=== PATIENT | female | born 1990 | race Caucasian/White ===

== ENCOUNTER 2020-09-04 07:59 | Observation (INO) | payer OTHER ==
[2020-09-04] VITALS (9 sets, daily range): BP systolic 94–105; BP diastolic 52–66; PULSE 70–83; TEMP 97.4–99
[~2020-09-04] VITALS: Ht 157.5 cm; Wt 73.6 kg
[2020-09-04] MEDS ORDERED: FOLIC ACID0.4 MG PO (08:22)
[2020-09-04 08:26] LABS: BASO % 0.4 % (0.0-2.0); EOS # 0.1 (0.0-0.7); GRAN # 4.6 (1.4-6.5); GRAN % 55.6 % (42.2-75.2); HEMATOCRIT 37.2 % (37.0-47.0); HEMOGLOBIN 12.1 g/dl (12.5-16.0); LYMPH # 2.9 (1.2-3.4); LYMPH % 35.3 % (20.0-51.0); MEAN CELL VOLUME 86 fl (80.0-100.0); MEAN CORPUSCULAR HEMOGLOBIN 28 pg (27.0-31.0); MEAN CORPUSCULAR HGB CONC 33 g/dl (33.0-37.0); MEAN PLATELET VOLUME 11.6 fl (7.4-10.4); MONO # 0.6 (0.1-0.6); MONO % 7.3 % (1.7-9.3); PLATELET COUNT 266 K/mm3 (130-400); RED BLOOD COUNT 4.33 M/mm3 (4.10-5.30)
[2020-09-04 08:34] LABS: PROTHROMBIN TIME 11.5 SECONDS (9.7-12.8)
[2020-09-04 08:38] LABS: ALANINE AMINOTRANSFERASE 11 U/L (4-34); ALBUMIN 4.5 gm/dL (3.5-5.0); ALKALINE PHOSPHATASE 49 U/L (50-136); ANION GAP 11 mmol/L (7-16); AST,SGOT 21 U/L (15-37); BILIRUBIN,TOTAL < 0.1 mg/dL (0.0-1.0); BLOOD UREA NITROGEN 8 mg/dL (7-17); CALCIUM 9.6 mg/dL (8.4-10.2); CARBON DIOXIDE 25 mmol/L (22-30); CHLORIDE 101 mmol/L (98-107); CREATININE, serum 0.41 (0.52-1.25); GLUCOSE 96 mg/dL (74-106); LIPASE 64 U/L (23-300); POTASSIUM 3.5 mmol/L (3.4-5.0); SODIUM 138 mmol/L (137-145)
[2020-09-04 08:42] LABS: COLLECTION METHOD CLEAN CATCH
[2020-09-04 09:03] LABS: MUCOUS Present /lpf; PH 6 (5-8); SQUAMOUS EPITHELIAL 0-2 /hpf; URINE APPEARANCE Clear; URINE BACTERIA None Seen /hpf; URINE BILIRUBIN Negative (NEGATIVE); URINE BLOOD Negative (NEGATIVE); URINE COLOR Yellow; URINE GLUCOSE Negative (NEGATIVE); URINE KETONE Negative (NEGATIVE); URINE LEUKOCYTE ESTERASE Negative (NEGATIVE); URINE NITRATE Negative (NEGATIVE); URINE PROTEIN(semi-quant) Negative (NEGATIVE); URINE RBC 0-2 /hpf; URINE UROBILINOGEN Negative (NEGATIVE)
--- NOTE | 2020-09-04 14:43 | NUR ---
To room 222 via bed. Report received. Assessment completed. VS obtained. to bedside. Plan of care reviewed with patient and spouse who verbalize understanding. Call light within reach.
[2020-09-05] VITALS: BP 102/58; PULSE 68
[2020-09-05 04:30] VITALS: BP 99/48; PULSE 65; TEMP 97.6
[2020-09-05 07:30] VITALS: BP 117/60; PULSE 69; TEMP 97.8
[2020-09-05] MEDS ORDERED: PERCOCET 325 MG1 TA2 PO (11:11)
[2020-09-05 11:20] VITALS: BP 100/60; PULSE 68; TEMP 97.8
--- NOTE | 2020-09-05 11:39 | NUR ---
Patient and given discharge instructions. Will call Dr. Gibson's office for follow up. Reviweed medications. Patient denies questions. Leaves ambulatory.
== END 2020-09-05 11:40 | disposition home or self-care (01) ==
LOC: COL.ER 07:59 → OB 11:37
PROVIDERS: Emergency Medicine; ADMIT Surgery
DX: O99.612 Diseases of the digestive system complicating pregnancy, second trimester (principal); K80.12 Calculus of gallbladder with acute and chronic cholecystitis without obstruction; Z3A.19 19 weeks gestation of pregnancy
CPT/HCPCS: G0378; J0330; J0690; J1100; J1170; J2405; J2704; J3010; J7040; J7120

== ENCOUNTER → 2020-12-08 | Outpatient (CLI) | payer OTHER ==
[~2020-12-08] MED LIST: FOLIC ACID0.4 MG PO; PERCOCET 325 MG1 TA2 PO
== END ==
LOC: DIA.ED 07:58
DX: O24.419 Gestational diabetes mellitus in pregnancy, unspecified control (principal)
CPT/HCPCS: G0108

== ENCOUNTER → 2021-02-10 | Outpatient (CLI) | payer SELFPAY | LOC: ZCOL.LAB 10:45 | DX: Z20.822 Contact with and (suspected) exposure to COVID-19 (principal) ==

== ENCOUNTER 2021-02-11 10:42 | Inpatient (IN) | payer OTHER ==
[~2021-02-11] VITALS: Ht 157.5 cm; Wt 88.5 kg
[2021-02-11] VITALS (48 sets, daily range): BP systolic 93–153; BP diastolic 51–98; PULSE 58–686; TEMP 97.9–98.5
--- NOTE | 2021-02-11 10:55 | NUR ---
PT ARRIVES AMBULATORY TO UNIT FROM CLINIC FOR INDUCTION OF LABOR PER FOLLOWING ULTRASOUND THIS AM RESULTING IN OLIGOHYDRAMNIOS. PT DENIES CONTRACTIONS, LEAKING OF FLUID, AND REPORTS POSITIVE MOVEMENT. ADMISSION ASSESSMENT COMPLETED. CONSENTS SIGNED. PT UPDATED ON POC. WILL CONTINUE WITH IOL PER ORDERS.
[2021-02-11 12:29] LABS: BASO % 0.4 % (0.0-2.0); EOS % 0.5 % (0-4.0); GRAN # 4.9 (1.4-6.5); GRAN % 63.7 % (42.2-75.2); LYMPH # 2.1 (1.2-3.4); LYMPH % 27.5 % (20.0-51.0); MEAN CELL VOLUME 77 fl (80.0-100.0); MEAN CORPUSCULAR HEMOGLOBIN 24 pg (27.0-31.0); MEAN CORPUSCULAR HGB CONC 32 g/dl (33.0-37.0); MEAN PLATELET VOLUME 12.7 fl (7.4-10.4); MONO # 0.5 (0.1-0.6); MONO % 6.7 % (1.7-9.3); PLATELET COUNT 216 K/mm3 (130-400); RED BLOOD COUNT 4.52 M/mm3 (4.10-5.30); REDCELL DISTRIBUTION WIDTH-CV 17.3 % (11.5-14.5)
[2021-02-11 12:30] LABS: HEMATOCRIT 34.7 % (37.0-47.0)
--- NOTE | 2021-02-11 14:38 | NUR ---
PT ASSISTED TO EDGE OF BED FOR EPIDURAL PLACEMENT. LR BOLUS INFUSING PER PROTOCOL. LORAINE BRASWELL AT BEDSIDE EDUCATION PATIENT ON PROCEDURE AND POTENTIAL SIDE EFFECTS. ALL CONSENTS SIGNED. 1438: TEST DOSE PER LORAINE BRASWELL. PT TOLERATED PROCEDURE WELL. VITAL SIGNS STABLE. CATEGORY 1 STRIP THROUGHOUT THIS ENCOUNTER.
--- NOTE | 2021-02-11 18:20 | NUR ---
1819- PT IS COMFORTABLE WITH EPIDURAL. PLAN OF CARE AND REASSURANCE PROVIDED. 1909- SVE BY THIS NURSE 3-/-3. PT REASSURED. 2029- PT REPOSITIONED TO RIGHT LATERAL FOR COMFORT. MONITORS ADJUSTED. 2099- DR DURÁN TO BEDSIDE. DISCUSSES AROM WITH PT AND . ANSWERES QUESTIONS. PT AGREEABLE TO THIS PLAN OF CARE TO AUGMENT HER LABOR. 2104- AROM OF CLEAR FLUID BY DR DURÁN. SVE BY DR DURÁN . PT TOLERATED WELL. 2134- PT FEELING MORE PRESSURE AND SOME DISCOMFORT. SVE BY THIS NURSE /-2. 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 PT VERBALIZES UNDERSTANDING.
--- NOTE | 2021-02-11 22:50 | NUR ---
2250- PT CALLS OUT WITH SOME PRESSURE AND DISCOMFORT. SVE BY THIS NURSE /-1. 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 REASSURANCE PROVIDED. PT POSITIONED IN RIGHT LATERAL WITH PEANUT BALL FOR COMFORTS. SHE DENIES FURTHER NEEDS AT THIS TIME. 2335- PT REPORTS THAT SHE IS FEELING PRESSURE. SVE BY THIS NURSE /0. PT IS NOT FEELING SHARP PAIN AT THIS TIME. PLAN OF CARE DISCUSSED AND QUESTIONS ANSWERED. 0010- SVE BY THIS NURSE /+2. PT IS FEELING SOME PRESSURE. DR BHANDARI AT DESK AND IS UPDATED THAT PT IS COMPLETE AND WE WILL START PUSHING. 0015- PT HAS EPISODE OF VOMITTING. 0025- PT POSITIONED IN FOOTPLATES. PUSHING DISCUSSED AND QUESTIONS ANSWERED. PT BEGINS COACHED PUSHING WITH AT BEDSIDE. 0055- DR BHANDARI AT BEDSIDE FOR DELIVERY. 0059- SPONTANEOUS DELIVERY OF HEAD, NUCHAL X1 REDUCED. SHOULDER DYSTOCIA CALLED BY DR BHANDARI, HEAD OF BED FLAT, IRMA, AND SUPRAPUBIC PRESSURE APPLIED. 0100- SPONTANEOUS DELIVERY OF VIABLE MALE, TO CARE OF NURSERY STAFF. 0106- SPONTANEOUS DELIVERY OF PLACENTA, EXAMINED BY DR BHANDARI. REPAIR IN PROGRESS. 0115- REPAIR COMPLETE. PERICARE PROVIDED. ICEPACK TO PERINEUM. CLEAN PAD PROVIDED. FEET DOWN FROM FOOTPLATES AND RECOVERY STARTED.
[2021-02-12] VITALS (9 sets, daily range): BP systolic 100–146; BP diastolic 54–90; PULSE 69–146; TEMP 97.8–98.8
--- NOTE | 2021-02-12 05:30 | NUR ---
0530- IV TO SALINE LOCK. EPIDURAL CATHETER REMOVED CHARTED. PT ASSISTED TO AMBULATE TO BATHROOM. ABLE TO VOID 700ML WITHOUT DIFFICULTY. PT PERFORMS PERICARE. CLEAN GOWN, PAD, AND PANTIES PROVIDED. 0545- PT AMBULATES TO ROOM 215 WITHOUT DIFFICULTY. BELONGINGS SENT WITH PT. PT ORIENTED TO ROOM AND CALL LIGHTS. PLAN OF CARE DISCUSSED AND QUESTIONS ANSWERED. PT DENIES FURTHER NEEDS AT THIS TIME.
[2021-02-13 07:10] VITALS: BP 112/51; PULSE 77; TEMP 98
[2021-02-13 13:00] VITALS: BP 115/73; PULSE 94; TEMP 98.2
== END 2021-02-13 13:15 | disposition home or self-care (01) | DRG 807 ==
LOC: OB 10:42 → LDR 10:45 → OB 02-12 05:45
PROVIDERS: ADMIT Obstetrics & Gynecology
PROC: 10E0XZZ Delivery of Products of Conception, External Approach (ICD-10-PCS; principal; 2021-02-12)
PROC: 0KQM0ZZ Repair Perineum Muscle, Open Approach (ICD-10-PCS; 2021-02-12)
PROC: 3E033VJ Introduction of Other Hormone into Peripheral Vein, Percutaneous Approach (ICD-10-PCS; 2021-02-12)
DX: O41.03X0 Oligohydramnios, third trimester, not applicable or unspecified (principal); Z37.0 Single live birth; O48.0 Post-term pregnancy; Z3A.40 40 weeks gestation of pregnancy; O66.0 Obstructed labor due to shoulder dystocia; R32 Unspecified urinary incontinence; O70.1 Second degree perineal laceration during delivery
CPT/HCPCS: J2590; J7120